=== PATIENT | male | born 1935 | race Caucasian/White ===

== ENCOUNTER 2017-02-15 16:06 | Inpatient (IN) | payer OTHER ==
[~2017-02-15] VITALS: Ht 177.8 cm; Wt 73.0 kg
--- NOTE | ~2017-02-15 | EKG ---
[place], [place] ELECTROCARDIOGRAM REPORT NAME: AMNA BLACKBURN UNIT #: [id number] ROOM: 409 DOCTOR: FRANCISCO PATE MD BIRTHDATE: [birth year] DOS: 02/15/2017 TIME: 1730 hours. FINDINGS: 1. Wondering atrial pacemaker with frequent premature ventricular contractions. 2. Low voltage in the extremity leads. 3. Nonspecific T-wave abnormalities. 4. Abnormal electrocardiogram. FRANCISCO PATE MD CM:EKGRPT:ELECTROCARDIOGRAM REPORT [id number] FRANCISCO PATE MD
--- NOTE | ~2017-02-15 | PR ---
[place], [place] PROGRESS NOTE NAME: AMNA BLACKBURN [facility] #: [id number] UNIT #: [id number] ROOM: 409 DOCTOR: FRANCISCO PATE MD BIRTHDATE: [birth year] DOS: 02/17/2017 CARDIOLOGY PROGRESS NOTE SUBJECTIVE: The patient was seen today in the Cardiology Department prior to on doing a stress test. The stress test was subsequently canceled because of recurrent runs of nonsustained ventricular tachycardia. The patient is an 82-year-old man who has a history of coronary artery disease status post myocardial infarction and percutaneous intervention while living in [place] in the past. He was sent to [facility] from the [facility] after experiencing some irregularities which were initially felt to be due to atrial fibrillation. My review of the supplied electrocardiograms indicated wandering atrial pacemaker. His echocardiogram, however, showed severe left ventricular dysfunction with an ejection fraction of about 20%. The left ventricle was globally hypokinetic and the apex was akinetic to dyskinetic. My plan had been to do to a pharmacologic stress test to evaluate for ischemia; however, through the night last night, he had frequent episodes of nonsustained wide complex tachycardia consistent with ventricular tachycardia. I initially replaced magnesium and ensured that the potassium levels were normal. I also placed him on beta blockers, but his arrhythmias persisted. Eventually, I did put him on an amiodarone drip. He did seem to improve briefly and was sent down to the Cardiology Lab for pharmacologic stress testing. The patient did undergo resting imaging, which was later reviewed and showed a large inferior lateral myocardial infarction. When we hooked him to the monitor for the pharmacologic stress test, he was having runs of nonsustained ventricular tachycardia. The test was therefore terminated prior to his receiving any stress agents. I discussed his situation with him, his daughter and his girlfriend. I believe that the next step would be cardiac catheterization and potential revascularization if appropriate anatomy is found. He also should be evaluated and managed by our nailer machine. I did speak to Dr. Pablo Krueger, nailer machine and Dr. Giacomo Martinez, bottle house quality control technician. They agree with my plan and the patient is being [facility] for catheterization and electrophysiologic evaluation. Cardiac catheterization indication is #58 with a score of 8. PHYSICAL EXAMINATION: VITAL SIGNS: Today, his pulse is 150 at this time. Blood pressure is 107/90. He is afebrile and weighs 73.0 kg. HEENT: Normocephalic and atraumatic. Extraocular muscles are intact. Sclerae are clear. Pupils are equal, round and react to light. The oral mucosa is moist. Tongue is midline. NECK: Supple. He has no jugular distention. Carotids are full. He had no bruits. He had no neck or supraclavicular masses and no thyromegaly. LUNGS: Respirations were unlabored. His chest was clear to auscultation and percussion. He had no presacral edema or chest wall tenderness. HEART: Had a regular rhythm. He had a fourth heart sound, I could not hear a third heart sound. The PMI was somewhat displaced laterally. [place], [place] PROGRESS NOTE NAME: AMNA BLACKBURN UNIT #: [id number] ROOM: [facility] DOCTOR: FRANCISCO PATE MD BIRTHDATE: [birth year] ABDOMEN: Soft and normoactive. EXTREMITIES: Showed no edema. Review of monitor strips do show multiple episodes of nonsustained ventricular tachycardia lasting up to 20 seconds. IMPRESSIONS: 1. Cardiomyopathy, most likely ischemic in origin, thus far the patient shows no signs of acute infarction and his troponin levels are completely normal. 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 2. Atrial arrhythmias with wandering atrial pacemaker. 3. Ventricular arrhythmias with nonsustained ventricular tachycardia in the setting of poor left ventricular systolic function. 4. History of coronary artery disease, status post [place] and subsequent stents. Details are not currently available. PLAN: The patient is being moved to the [facility] in [place] for catheterization and electrophysiologic assessment. FRANCISCO PATE MD CM:PNTRANS [id number] FRANCISCO PATE MD 02/18/17215 interface
--- NOTE | ~2017-02-15 | EKG ---
[place], [place] ELECTROCARDIOGRAM REPORT NAME: AMNA BLACKBURN UNIT #: [id number] ROOM: 409 DOCTOR: FRANCISCO PATE MD BIRTHDATE: [birth year] DOS: 02/15/2017 TIME: 1632 hours. FINDINGS: 1. Wondering atrial pacemaker at rate of 96. 2. Frequent PVCs and couplets noted. 3. Nonspecific ST and T-wave changes. 4. Abnormal electrocardiogram. FRANCISCO PATE MD CM:EKGRPT:ELECTROCARDIOGRAM REPORT [id number] FRANCISCO PATE MD
--- NOTE | ~2017-02-15 | ST ---
[place], [place] EXERCISE STRESS TEST REPORT [id number] UN[facility] #: [id number] ROOM: 409 DOCTOR: FRANCISCO PATE MD BIRTHDATE: [birth year] DOS: 02/17/2017 PHARMACOLOGIC MYOCARDIAL STRESS TEST The patient came down to the Cardiology Department and was seen prior to a pharmacologic stress test. He was injected and resting images were performed. He was then hooked up to a monitored and found to be having nonsustained runs of ventricular tachycardia. The procedure was therefore canceled and no stress imaging was done. Please see the report of the resting images for details of his resting myocardial perfusion. FRANCISCO PATE MD CM:STRESS:EXERCISE STRESS TEST REPORT [id number] FRANCISCO PATE MD
[2017-02-15 16:06] VITALS: BP 139/84
[2017-02-15 16:59] LABS: BASO # 0.1 10*3/uL (0.0-0.1); BASO % 0.6 % (0.0-1.0); EOS # 0.7 10*3/uL (0.0-0.4); EOS % 7.9 % (1.0-4.0); HEMATOCRIT 37.6 % (42.0-52.0); HEMOGLOBIN 11.3 g/dl (14.0-18.0); IG # 0.1 10*3/uL (0.0-0.1); LYMPH % 23.6 % (27.0-41.0); MEAN CELL VOLUME 95.4 fl (80.0-94.0); MEAN CORPUSCULAR HGB 28.7 pg (27.0-31.0); MEAN CORPUSCULAR HGB CONC 30.1 g/dl (33.0-37.0); MONO # 0.5 10*3/uL (0.1-1.0); MONO % 5.8 % (3.0-9.0); NEUT # 5.2 10*3/uL (2.3-7.9); NEUT % 61.5 % (47.0-73.0); PLATELET COUNT AUTOMATED 346 10*3/uL (130-400); RED BLOOD COUNT 3.94 10*6/uL (4.50-5.90); WHITE BLOOD COUNT 8.4 10*3/uL (4.8-10.8)
[2017-02-15 17:00] VITALS: BP 122/68
[2017-02-15 17:08] LABS: PROTHROMBIN TIME 11.1 SECONDS (9.0-12.4)
[2017-02-15 17:21] LABS: BUN 17 mg/dl (7-24); CARBON DIOXIDE 27 mmol/L (21-32); CHLORIDE 104 mmol/L (98-107); CPK 39 U/L (39-308); EST GLOM FILT AFRICAN AMERICAN > 60 ml/min; GLUCOSE 82 mg/dL (65-99); POTASSIUM 4.1 mmol/L (3.5-5.1); SODIUM 140 mmol/L (136-145)
[2017-02-15 17:22] LABS: TROPONIN I < 0.015 ng/ml (<0.045)
[2017-02-15] MEDS ORDERED: ASPIR 8181 MG PO (17:36)
[2017-02-15] MEDS ORDERED: TYLENOL325 M2 PO (17:37)
[2017-02-15 17:47] VITALS: BP 130/67
[2017-02-15 18:17] LABS: BILIRUBIN NEGATIVE (NEGATIVE); BLOOD TRACE-INTACT (NEGATIVE); CLARITY CLEAR (CLEAR); COLOR YELLOW (YELLOW); GLUCOSE NEGATIVE (NEGATIVE); KETONE NEGATIVE (NEGATIVE); LEUKO ESTERASE NEGATIVE (NEGATIVE); NITRITE NEGATIVE (NEGATIVE); PH 5.5 (5.0-9.0); PROTEIN NEGATIVE (NEGATIVE); SPECIFIC GRAVITY 1.025 (1.005-1.030); UROBILINOGEN 0.2 E.U./dl (0.2-1.0)
[2017-02-15 18:30] VITALS: BP 121/77
[2017-02-15 18:53] VITALS: BP 130/89
[2017-02-15 19:18] LABS: EPITHELIAL CELLS 0-2; RBC 0-2 rbc/hpf (0-2); URINE REFLEX COMMENT NO (NO)
[2017-02-15 20:00] VITALS: BP 114/73
[2017-02-16] VITALS: BP 112/73
[2017-02-16 00:45] LABS: CKMB 0.9 ng/ml (0.5-3.6); CPK 31 U/L (39-308)
[2017-02-16 00:47] LABS: TROPONIN I < 0.015 ng/ml (<0.045)
[2017-02-16 06:47] LABS: BASO % 0.2 % (0.0-1.0); HEMATOCRIT 35.2 % (42.0-52.0); HEMOGLOBIN 10.5 g/dl (14.0-18.0); LYMPH % 17.8 % (27.0-41.0); MEAN CELL VOLUME 94.9 fl (80.0-94.0); MEAN CORPUSCULAR HGB 28.3 pg (27.0-31.0); MEAN CORPUSCULAR HGB CONC 29.8 g/dl (33.0-37.0); MEAN PLATELET VOLUME 9.6 fl (9.6-12.3); MONO # 0.1 10*3/uL (0.1-1.0); MONO % 1.8 % (3.0-9.0); NEUT # 4.5 10*3/uL (2.3-7.9); NEUT % 79.8 % (47.0-73.0); PLATELET COUNT AUTOMATED 306 10*3/uL (130-400); RED BLOOD COUNT 3.71 10*6/uL (4.50-5.90); RED CELL DISTRI WIDTH 14.8 % (0-14.5); WHITE BLOOD COUNT 5.7 10*3/uL (4.8-10.8)
[2017-02-16 06:58] LABS: INTERNATIONAL NORM RATIO 1.1 (2.0-3.5); PROTHROMBIN TIME 11.2 SECONDS (9.0-12.4)
[2017-02-16 07:15] LABS: CHLORIDE 104 mmol/L (98-107); HEMOGLOBIN A1c 5.3 % (4.8-5.6); POTASSIUM 4.1 mmol/L (3.5-5.1); SODIUM 139 mmol/L (136-145)
[2017-02-16 07:17] LABS: VITAMIN D, 25-HYDROXY 11.8 ng/mL (30-100)
[2017-02-16 07:18] LABS: FOLIC ACID 5.54 ng/mL (>5.38)
[2017-02-16 07:20] LABS: CKMB 0.5 ng/ml (0.5-3.6); CPK 27 U/L (39-308); TROPONIN I < 0.015 ng/ml (<0.045)
[2017-02-16 07:35] LABS: BUN 23 mg/dl (7-24); CARBON DIOXIDE 26 mmol/L (21-32); CHOLESTEROL 143 mg/dL (<200); EST GLOM FILT AFRICAN AMERICAN > 60 ml/min; FREE T4 1.12 ng/dl (0.76-1.46); GLUCOSE 187 mg/dL (65-99); HDL CHOLESTEROL 48 mg/dl (40-60); LDL CHOLESTEROL 81 mg/dL (9-159); THYROID STIM HORMONE (HS) 0.842 uIU/ml (0.358-4.75); TRIGLYCERIDES 70 mg/dl (<150); VLDL CHOLESTEROL 14 mg/dL (6-40)
[2017-02-16 08:00] VITALS: BP 113/62
[2017-02-16 12:00] VITALS: BP 120/72
[2017-02-16 12:46] LABS: CPK 37 U/L (39-308); TROPONIN I < 0.015 ng/ml (<0.045)
[2017-02-16 16:00] VITALS: BP 104/67
[2017-02-16 20:00] VITALS: BP 100/64
[2017-02-17] VITALS: BP 109/78
[2017-02-17 02:00] VITALS: BP 102/60
[2017-02-17 04:00] VITALS: BP 109/72
[2017-02-17 06:00] VITALS: BP 100/77
[2017-02-17 06:08] LABS: BASO % 0.1 % (0.0-1.0); HEMATOCRIT 33.3 % (42.0-52.0); HEMOGLOBIN 10.1 g/dl (14.0-18.0); IG # 0.2 10*3/uL (0.0-0.1); LYMPH # 1.2 10*3/uL (1.3-4.4); LYMPH % 8.1 % (27.0-41.0); MEAN CELL VOLUME 94.9 fl (80.0-94.0); MEAN CORPUSCULAR HGB 28.8 pg (27.0-31.0); MEAN CORPUSCULAR HGB CONC 30.3 g/dl (33.0-37.0); MEAN PLATELET VOLUME 8.9 fl (9.6-12.3); MONO # 0.6 10*3/uL (0.1-1.0); MONO % 4.1 % (3.0-9.0); NEUT % 86.2 % (47.0-73.0); PLATELET COUNT AUTOMATED 378 10*3/uL (130-400); RED BLOOD COUNT 3.51 10*6/uL (4.50-5.90); RED CELL DISTRI WIDTH 15.4 % (0-14.5)
[2017-02-17 06:37] LABS: CARBON DIOXIDE 26 mmol/L (21-32); CHLORIDE 103 mmol/L (98-107); GLUCOSE 213 mg/dL (65-99); MAGNESIUM 2.6 mg/dL (1.5-2.1); POTASSIUM 4.1 mmol/L (3.5-5.1); SODIUM 138 mmol/L (136-145)
[2017-02-17 06:40] LABS: BUN 27 mg/dl (7-24); EST GLOM FILT AFRICAN AMERICAN > 60 ml/min
[2017-02-17 08:00] VITALS: BP 105/80; BP 107/90
[2017-02-17 10:00] VITALS: BP 113/75
== END 2017-02-17 11:45 | disposition short-term general hospital (02) | DRG 308 ==
LOC: ED 16:06 → 4E 17:37 → EDHOLD 17:37 → 4E 18:27
PROVIDERS: Internal Medicine; Student in an Organized Health Care Education/Training Program
DX: I48.91 Unspecified atrial fibrillation (principal); J18.9 Pneumonia, unspecified organism; I50.42 Chronic combined systolic (congestive) and diastolic (congestive) heart failure; D64.9 Anemia, unspecified; Z87.891 Personal history of nicotine dependence; Z80.1 Family history of malignant neoplasm of trachea, bronchus and lung; Z80.0 Family history of malignant neoplasm of digestive organs; E55.9 Vitamin D deficiency, unspecified; I25.10 Atherosclerotic heart disease of native coronary artery without angina pectoris